=== PATIENT | female | born 1995 | race African-American/Black ===

== ENCOUNTER 2016-10-20 09:03 | Emergency (ER) | payer OTHER ==
[~2016-10-20] VITALS: Ht 172.7 cm; Wt 74.4 kg
[~2016-10-20 09:03] MED LIST: ACETAMINOPHEN-1 EAC1 PO; BACTRIM DS TAB1 EACH PO; KLOR-CON 1010 MEQ PO; NAPROSYN375 MG PO; NAPROSYN500 MG PO; NOHOMEMEDICATIONS; ROBAXIN500 MG PO; TRAMADOL 50 MG50 MG PO
[2016-10-20] MEDS ORDERED: TRINATE TABLET1 TAB PO (09:17)
[2016-10-20 09:20] LABS: URINE BILIRUBIN NEGATIVE (Negative); URINE BLOOD NEGATIVE (Negative); URINE COLOR YELLOW; URINE GLUCOSE-RANDOM* NEGATIVE (Negative); URINE KETONES NEGATIVE (Negative); URINE LEUKOCYTES-REFLEX 2+ (Negative); URINE PROTEIN (DIPSTICK) TRACE (Negative)
[2016-10-20 09:26] LABS: SQUAMOUS >10 Many /LPF (0-3)
[2016-10-20 09:27] LABS: URINE RBC 0-2 Rare /HPF (0-2)
[2016-10-20 09:29] LABS: CASTS None Seen /LPF (None Seen); CRYSTALS None Seen /LPF (None Seen)
[2016-10-20 10:05] LABS: ABSOLUTE NEUTROPHILS 7.5 thou/uL (1.4-8.2); BASOPHILS 0.2 % (0.0-2.0); EOSINOPHILS 1.5 % (0.0-3.0); HEMATOCRIT 36.8 % (37.0-47.0); HEMOGLOBIN 12.5 gm/dL (12.0-15.0); LYMPHOCYTES 20.5 % (24.0-44.0); MANUAL DIFF NO; MCH 29.9 pg (26.0-34.0); MCHC 33.9 g/dL (28.0-37.0); MCV 88.3 fL (80.0-100.0); MONOCYTES 6.2 % (1.0-8.0); PLATELET COUNT 156 thou/uL (150-400); POLYS 71.6 % (36.0-66.0); RBC 4.17 mil/uL (4.20-5.00); RDW 13.6 % (10.5-14.5); WBC 10.4 thou/uL (4.0-11.0)
[2016-10-20 10:13] LABS: CALCIUM 8.8 mg/dL (8.5-10.1); CREATININE 0.5 mg/dL (0.6-1.0); POTASSIUM 3.6 mmol/L (3.5-5.1)
[2016-10-20 10:17] LABS: TOTAL BILIRUBIN 0.3 mg/dL (<0.1-1.0); TOTAL PROTEIN 6.7 g/dL (6.4-8.2)
[2016-10-20] MEDS ORDERED: MACROBID 100 M100 M1 PO (11:36)
[2016-10-20] MEDS ORDERED: FLAGYL500 MG PO (11:36)
[2016-10-20 12:25] VITALS: BP 110/65
[2016-10-23 15:09] LABS: CHLAMYDIA TRACHOMATIS-PCR Negative (Negative); NEISSERIA GONORRHEA-PCR Negative (Negative)
== END 2016-10-20 12:26 ==
LOC: ER 09:03
PROVIDERS: Emergency Medicine
DX: O26.892 Other specified pregnancy related conditions, second trimester (principal); R10.9 Unspecified abdominal pain; F17.210 Nicotine dependence, cigarettes, uncomplicated